=== PATIENT | male | born 1995 | race Two or more races ===

== ENCOUNTER 2017-11-15 16:27 | Emergency (ER) | payer MEDICAID ==
[2017-11-15] MEDS ORDERED: Ibuprofen TAB* 800 MG PO ONE (19:56)
--- NOTE | 2017-11-15 20:46 | ED ---
Throat Pain/Nasal Congestion - HPI Summary HPI Summary: Pt here w/ ST and swollen LN's x [address] last week - treated with throat gargles and seemed to get better but now he has swollen glands and return of sore throat. Also has some Rt upper gingiva swelling, irritation around a few teeth. Furthermore, he admits to popping a zit on the Rt side of his face which "smelled like infection". Does not have active drainage from tooth/teeth. Area on cheek is also reduced in size, no currently active drainage. Was found to have low grade fever here today and reports COULTER along Rt side of forehead. LN's are swollen on Rt side of neck and under jaw - tender to touch. Denies nausea, vomiting, trouble breathing or swallowing or rash and no chest pain, shortness of breath, ab pain or extremity pain. No other area of LN swelling (ie, armpits, groin, etc). No other medical issues to report other than CP. Here visiting from [facility]. 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 Negative: Chills, Fatigue Eyes: Negative Negative: Photophobia, Blurred Vision, Diplopia, Drainage, Erythema Positive: Dental Pain, Sore Throat, Nasal Discharge Cardiovascular: Negative Negative: Palpitations, Chest Pain Respiratory: Negative Negative: Shortness Of Breath, Cough Gastrointestinal: Negative Negative: Abdominal Pain, Vomiting, Diarrhea, Nausea Positive: no symptoms reported Musculoskeletal: Negative Skin: Other - Rt cheek Positive: Headache. Negative: Weakness, Paresthesia, Numbness, Syncope, Slurred Speech Psychological: Normal All Other Systems Reviewed And Are Negative: Yes Physical Exam Triage Information Reviewed: Yes Vital Signs On Initial Exam: Initial Vitals Temp Pulse Resp BP Pulse Ox 99.6 F 101 20 142/82 96 11/15/17 16:31 11/15/17 16:31 18 16:31 11/15/17 16:31 11/15/17 16:31 Vital Signs Reviewed: Yes Appearance: Positive: Well-Appearing, No Pain Distress, Well-Nourished Skin: Positive: Warm, Dry - Rt cheek w/ 3mm area of faded macular ecchymosis ( appears to be area where pt pinched cheek) - no erythema, no edema, no pustule, no vesicle, NTTP Head/Face: Positive: Normal Head/Face Inspection - sinsues NTTP Eyes: Positive: Normal, EOMI, PRABHU, Conjunctiva Clear. Negative: Conjunctiva Inflammed, Discharge ENT: Positive: Normal ENT inspection, Hearing grossly normal, Pharynx normal, TMs normal, Uvula midline. Negative: Nasal congestion, Nasal drainage, Trismus , Muffled voice, Sinus tenderness Dental: Positive: Other - gingiva about the Rt upper teeth w/ mild erythema, irritation - no mily d/c observed. Negative: Dental Fracture @ Neck: Positive: Supple, Tenderness @, Enlarged Nodes @ - Rt submandibular and cc LN's w/ edema and TTP - 1 LN is > 1 cm, mobile Respiratory/Lung Sounds: Positive: Clear to Auscultation, Breath Sounds Present. Negative: Rales, Rhonchi, Stridor, Tracheal Deviation, Wheezes Cardiovascular: Positive: Normal, RRR, S1, S2 Abdomen Description: Positive: Nontender, No Organomegaly, Soft Bowel Sounds: Positive: Present Musculoskeletal: Positive: Other - appropriate for CP Neurological: Positive: Alert, Oriented to Person Place, Time, CN Intact II-III , Other - appropriate for CP Psychiatric: Positive: Normal - Howe Coma Scale Coma Scale Total: 15 Diagnostics - Vital Signs Vital Signs Temp Pulse Resp BP Pulse Ox 11/15/17 16:31 99.6 F 101 20 142/82 96 - Laboratory Result Diagrams: 11/15/17 22:06 11/15/17 22:06 Lab Statement: Any lab studies that have been ordered have been reviewed, and results considered in the medical decision making process. EENT Course/Dx - Course Course Of Treatment: Initially w/u for strep and influenza however upon findings neg results, further testing was ordered as pt's LN's are swollen and no local PCP. After testing, diff dx discussion and tx plan reviewed, pt does agree w/ f/u w/ PCP in town - will call to establish or will return to ED/UC for recheck of LN's next week. He understands the importance of f/u for conditions of not only infection but also cancer, etc. - Diagnoses Provider Diagnoses: Lymphadenitis Discharge - Discharge Plan Condition: Stable Disposition: HOME Prescriptions: Azithromycin TAB* [Zithromax TAB (Z-JAI) 250 mg #6 tabs] 250 mg PO DAILY #4 tab Patient Education Materials: Lymphadenopathy (ED) Referrals: [facility] [place] [facility] [Outside] Additional Instructions: The definitive cause of your swollen and tender lymph nodes was not identified tonight however you have had a sore throat and may have a dental infection which can both cause lymph node swelling the neck. You may use ibuprofen, acetaminophen for pain and complete antibiotics as directed. Follow-up with PCP to make sure your lymph nodes are reducing in size. If you do not have improvement with this course of treatment, you may benefit from further testing. If you cannot get in with a primary care doctor by next week, follow-up with urgent care or return to ED for re-evaluation of your lymph node swelling. *If you develop fever, chills, difficulty breathing or swallowing, headache or neck stiffness return to ED
[2017-11-15 22:41] LABS: ABS Basophils 0.1 10^3/ul (0-0.2); ABS Eosinophils 0.2 10^3/ul (0-0.6); ABS Lymphocytes 2.6 10^3/ul (1.0-4.8); ABS Monocytes 1.4 10^3/ul (0-0.8); ABS Neutrophils 5.9 10^3/ul (1.5-7.7); ABS Nucleated RBC 0.01 10^3/ul; Eosinophil % 2.1 % (0-6); Hematocrit 40 % (42-52); Hemoglobin 13.5 g/dl (14.0-18.0); Lymphocyte % 25.8 % (25-47); Mean Corpuscular HGB Conc 33 g/dl (31-36); Mean Corpuscular Hemoglobin 27 pg (27-31); Mean Corpuscular Volume 81 fL (80-94); Mean Platelet Volume 7 um3 (7.4-10.4); Nucleated Red Blood Cells % 0.1; Platelet Count 212 10^3/ul (150-450); Red Blood Count 4.99 10^6/ul (4.0-5.4); Red Cell Distribution Width 13 % (10.5-15); White Blood Count 10.2 10^3/ul (3.5-10.8)
[2017-11-15 22:54] LABS: EGFR Non-African American 116.4 (>60)
[2017-11-15] MEDS ORDERED: Azithromycin TAB* 250 MG PO ONE (23:05)
[2017-11-15] MEDS ORDERED: Acetaminophen TAB* 325 MG PO ONE (23:05)
[2017-11-16 00:57] VITALS: BP 137/60
== END 2017-11-15 23:18 | disposition home or self-care (01) ==
LOC: ED 16:27
DX: I88.9 Nonspecific lymphadenitis, unspecified (principal); K08.89 Other specified disorders of teeth and supporting structures; J02.9 Acute pharyngitis, unspecified; R51 Headache
CPT/HCPCS: 36415; 80053; 83605; 85025; 86140; 86308; 87502; 87651; 99283; A9270-GY